=== PATIENT | male | born 1990 | race African-American/Black ===

== ENCOUNTER 2020-08-10 12:54 | Emergency (ER) | payer SELFPAY ==
[~2020-08-10] VITALS: Ht 177.8 cm; Wt 124.0 kg
[2020-08-10] MEDS ORDERED: IBUPROFEN 600MG TABLET PO STA (14:47)
[2020-08-10 16:30] VITALS: BP 151/86
== END 2020-08-10 16:34 | disposition home or self-care (01) ==
LOC: ER 12:54
DX: R07.89 Other chest pain (principal); R03.0 Elevated blood-pressure reading, without diagnosis of hypertension
CPT/HCPCS: 71045; 93005; 99283